=== PATIENT | male | born 1965 | race African-American/Black ===

== ENCOUNTER 2018-03-08 08:55 | Emergency (ER) | payer MEDICAID ==
[~2018-03-08] VITALS: Ht 172.7 cm; Wt 76.0 kg
[2018-03-08] MEDS ORDERED: KETOROLAC 60MG/2ML VIAL IM ONE (13:15)
[2018-03-08 13:45] VITALS: BP 109/79
== END 2018-03-08 14:03 | disposition home or self-care (01) ==
LOC: ER 09:14
DX: J06.9 Acute upper respiratory infection, unspecified (principal); R05 Cough
CPT/HCPCS: 96372; 99283; J1885

== ENCOUNTER 2018-08-18 09:33 | Emergency (ER) | payer MEDICAID ==
[~2018-08-18] VITALS: Ht 172.7 cm; Wt 72.0 kg
[2018-08-18 09:41] VITALS: BP 119/81
[2018-08-18] MEDS ORDERED: IPRATROPIUM BROMIDE (0.02%) 0.5MG/2.5ML NEB HHN STA (10:32)
[2018-08-18] MEDS ORDERED: PREDNISONE 20MG TABLET PO STA (10:32)
[2018-08-18] MEDS ORDERED: ALBUTEROL (0.083%) 2.5MG/3ML NEB HHN STA (10:32)
== END 2018-08-18 11:34 | disposition home or self-care (01) ==
LOC: ER 09:33
DX: J20.9 Acute bronchitis, unspecified (principal); Z88.8 Allergy status to other drugs, medicaments and biological substances
CPT/HCPCS: 71045; 94640; 99283; J7512; J7611

== ENCOUNTER 2018-08-24 09:49 | Emergency (ER) | payer MEDICAID ==
[~2018-08-24] VITALS: Ht 172.7 cm; Wt 73.0 kg
[2018-08-24 11:00] VITALS: BP 132/96
== END 2018-08-24 11:30 | disposition home or self-care (01) ==
LOC: ER 09:49
DX: J40 Bronchitis, not specified as acute or chronic (principal)
CPT/HCPCS: 99281

== ENCOUNTER 2020-08-26 21:14 | Inpatient (IN) | payer MEDICAID ==
[~2020-08-26] VITALS: Ht 167.6 cm; Wt 65.3 kg
[2020-08-26] MEDS ORDERED: ACETAMINOPHEN 325MG TABLET PO STA (23:31)
[2020-08-26] MEDS ORDERED: SODIUM CHLORIDE 0.9% 1,000 ML IV ONE (23:45)
[2020-08-26] MEDS ORDERED: CEFTRIAXONE 1 G PREMIX 50 ML IV ONE (23:45)
[2020-08-26] MEDS ORDERED: AZITHROMYCIN 500 MG in DEXT 5% WATER 250 ML IV ONE (23:45)
[2020-08-27] VITALS (38 sets, daily range): BP systolic 52–146; BP diastolic 30–106
[2020-08-27 00:41] LABS: HEMATOCRIT. 39.3 % (42.0-52.0); HEMOGLOBIN. 12.8 g/dL (14.0-18.0); MEAN CORPUSCULAR VOLUME 88.8 fL (80.0-94.0); MEAN PLATELET VOLUME 9.9 fl (7.4-10.4); PLATELET 204 x1000/uL (130-400); RED BLOOD CELL COUNT 4.42 mill/uL (4.7-6.1)
[2020-08-27 00:44] LABS: CLARITY URINE TURBID (CLEAR); COLOR URINE ORANGE (YELLOW); KETONES URINE TRACE (NEGATIVE); LEUKOCYTE ESTERASE URINE TRACE (NEGATIVE); NITRITE URINE POSITIVE (NEGATIVE); OCCULT BLOOD URINE 3+ (NEGATIVE); PROTEIN URINE 3+ (NEGATIVE); SPECIFIC GRAVITY URINE 1.023 (1.005-1.030)
[2020-08-27 00:45] LABS: CHLORIDE 93 mEq/L (98-107)
[2020-08-27 02:26] LABS: INR 1.2
[2020-08-27 03:59] LABS: NUCLEATED RED BLOOD CELLS 9 /100 WBC; PLATELET ESTIMATE NORMAL
[2020-08-27] MEDS ORDERED: HEPARIN 80 UNITS/KG BOLUS IV SCH (06:00)
[2020-08-27] MEDS ORDERED: HEPARIN BOLUS PRN aPTT <36 IV (06:00)
[2020-08-27] MEDS ORDERED: HEPARIN BOLUS PRN aPTT 37-44 IV (06:00)
[2020-08-27] MEDS ORDERED: HEPARIN 25,000 UNITS PREMIX 250 ML IV SCH (06:00)
[2020-08-27] MEDS ORDERED: IOHEXOL-350 100 ML BOTTLE ONE (06:09)
[2020-08-27] MEDS ORDERED: ACETAMINOPHEN 325MG TABLET PO PRN (10:00)
[2020-08-27] MEDS ORDERED: CLONIDINE 0.1MG TABLET PO PRN (10:00)
[2020-08-27] MEDS ORDERED: ONDANSETRON HCL 4MG/2ML INJ IV PRN (10:00)
[2020-08-27] MEDS: PIPERACILLIN/TAZOBACTAM 3.375 G in DEXTROSE 5% WATER 50 ML IV SCH ×2 (12:02→17:30)
[2020-08-27] MEDS: DEXAMETHASONE 10 MG/ML VIAL IV SCH (12:02)
[2020-08-27 12:32] LABS: BG BASE EXCESS 2.1 mmol/L (-2.0-2.0); BG CARBOXYHEMOGLOBIN 0.8 % (0.5-1.5); BG DEOXYHEMOGLOBIN 4.7 % (0.0-5.0); BG FRACTION INSPIRED OXYGEN 99.8; BG HCO3 ACT 25.5 mmol/L (22.0-26.0); BG METHEMOGLOBIN 0.8 % (0.0-1.5); BG OXYGEN SATURATION 95.2 % (92.0-98.5); BG OXYHEMOGLOBIN 93.7 % (94.0-97.0); BG PCO2 35.9 mmHg (35.0-45.0); BG PO2 75.7 mmHg (75.0-100.0); BG SAMPLE SITE LEFT RADIAL; BG TOTAL HEMOGLOBIN 12.7 g/dL (12.0-18.0); BG VENT MODE MASK - NRB
[2020-08-27] MEDS ORDERED: NALOXONE HCL 0.4MG/ML VIAL IV PRN (12:45)
[2020-08-27] MEDS ORDERED: HYDROCODONE/ACETAMINOPHEN 10/325MG TABLET PO PRN (12:45)
[2020-08-27] MEDS: HEPARIN 25,000 UNITS PREMIX 250 ML IV SCH (13:24)
[2020-08-27 18:55] LABS: *BENZODIAZEPINES SCREEN URINE NEGATIVE (NEGATIVE); CANNABINOID URINE SCREEN NEGATIVE (NEGATIVE); METHADONE URINE SCREEN NEGATIVE (NEGATIVE); PHENCYCLIDINE URINE SCREEN NEGATIVE (NEGATIVE)
[2020-08-27 18:56] LABS: *AMPHETAMINES SCREEN URINE NEGATIVE (NEGATIVE); *BARBITURATES SCREEN URINE NEGATIVE (NEGATIVE); *COCAINE SCREEN URINE NEGATIVE (NEGATIVE); OPIATES URINE SCREEN NEGATIVE (NEGATIVE)
[2020-08-28] VITALS (75 sets, daily range): BP systolic 102–142; BP diastolic 66–101
[2020-08-28] MEDS: PIPERACILLIN/TAZOBACTAM 3.375 G in DEXTROSE 5% WATER 50 ML IV SCH ×4 (00:08→17:16)
[2020-08-28] MEDS: HEPARIN 25,000 UNITS PREMIX 250 ML IV SCH ×2 (00:56→21:03)
[2020-08-28 06:57] LABS: CHLORIDE 99 mEq/L (98-107)
[2020-08-28 06:59] LABS: HEMATOCRIT 34.4 % (42.0-52.0); HEMOGLOBIN 11.4 g/dL (14.0-18.0); MEAN CORPUSCULAR HEMOGLOBIN 29.6 pg (28.0-32.0); MEAN CORPUSCULAR VOLUME 89.7 fL (80.0-94.0); PLATELET 259 x1000/uL (130-400); RED BLOOD CELL COUNT 3.83 mill/uL (4.7-6.1); RED CELL DISTRIBUTION WIDTH 13.2 % (11.6-14.6)
[2020-08-28] MEDS: DEXAMETHASONE 10 MG/ML VIAL IV SCH (10:01)
[2020-08-28 14:11] LABS: C REACTIVE PROTEIN QUANT > 190.0 mg/L (0.0-3.0)
[2020-08-28] MEDS: ALBUTEROL 6.7GM HFA INHALER ORI SCH ×3 (16:21→23:30)
[2020-08-29] VITALS (49 sets, daily range): BP systolic 112–132; BP diastolic 65–98
[2020-08-29] MEDS: PIPERACILLIN/TAZOBACTAM 3.375 G in DEXTROSE 5% WATER 50 ML IV SCH ×5 (01:20→23:03)
[2020-08-29] MEDS: DEXAMETHASONE 10 MG/ML VIAL IV SCH (08:10)
[2020-08-29 10:00] LABS: CHLORIDE 103 mEq/L (98-107)
[2020-08-29] MEDS: ALBUTEROL 6.7GM HFA INHALER ORI SCH ×4 (10:10→23:03)
[2020-08-29] MEDS ORDERED: GUAIFENESIN-DM 200MG-20MG/10ML UDC PO PRN (10:30)
[2020-08-29 11:39] LABS: HEMATOCRIT. 35.6 % (42.0-52.0); MEAN CORPUSCULAR HEMOGLOBIN 30.1 pg (28.0-32.0); MEAN CORPUSCULAR VOLUME 89.7 fL (80.0-94.0); MEAN PLATELET VOLUME 10.4 fl (7.4-10.4); PLATELET 338 x1000/uL (130-400); RED BLOOD CELL COUNT 3.97 mill/uL (4.7-6.1); RED CELL DISTRIBUTION WIDTH 12.7 % (11.6-14.6)
[2020-08-29] MEDS: ENOXAPARIN 80MG/0.8ML SYR SUBCUT SCH ×2 (12:01→22:52)
[2020-08-29 12:25] LABS: PLATELET ESTIMATE NORMAL
[2020-08-30] VITALS: BP 126/84
[2020-08-30 04:00] VITALS: BP 140/93
[2020-08-30] MEDS: ALBUTEROL 6.7GM HFA INHALER ORI SCH ×4 (05:25→23:58)
[2020-08-30] MEDS: PIPERACILLIN/TAZOBACTAM 3.375 G in DEXTROSE 5% WATER 50 ML IV SCH ×4 (05:25→23:53)
[2020-08-30 08:00] VITALS: BP 104/66
[2020-08-30] MEDS: DEXAMETHASONE 10 MG/ML VIAL IV SCH (09:22)
[2020-08-30] MEDS: ENOXAPARIN 80MG/0.8ML SYR SUBCUT SCH ×2 (09:22→20:41)
[2020-08-30 12:00] VITALS: BP 115/78
[2020-08-30 16:00] VITALS: BP 116/80
[2020-08-30 20:00] VITALS: BP 113/79
[2020-08-31] VITALS: BP 156/107
[2020-08-31 04:00] VITALS: BP 138/88
[2020-08-31] MEDS: ALBUTEROL 6.7GM HFA INHALER ORI SCH ×4 (05:20→23:37)
[2020-08-31] MEDS: PIPERACILLIN/TAZOBACTAM 3.375 G in DEXTROSE 5% WATER 50 ML IV SCH ×4 (05:20→23:37)
[2020-08-31 08:00] VITALS: BP 113/82
[2020-08-31] MEDS: ENOXAPARIN 80MG/0.8ML SYR SUBCUT SCH ×2 (10:04→20:34)
[2020-08-31] MEDS: DEXAMETHASONE 10 MG/ML VIAL IV SCH (10:05)
[2020-08-31 12:00] VITALS: BP 119/83
[2020-08-31 13:30] LABS: BG BASE EXCESS 2.3 mmol/L (-2.0-2.0); BG CARBOXYHEMOGLOBIN 0.3 % (0.5-1.5); BG DEOXYHEMOGLOBIN 1.9 % (0.0-5.0); BG FRACTION INSPIRED OXYGEN 99.8; BG HCO3 ACT 26.7 mmol/L (22.0-26.0); BG METHEMOGLOBIN 0.3 % (0.0-1.5); BG OXYGEN SATURATION 98.1 % (92.0-98.5); BG OXYHEMOGLOBIN 97.5 % (94.0-97.0); BG PCO2 40.6 mmHg (35.0-45.0); BG PH 7.436 (7.350-7.450); BG PO2 120.4 mmHg (75.0-100.0); BG SAMPLE SITE RIGHT RADIAL; BG VENT MODE MASK - NRB
[2020-08-31 16:00] VITALS: BP 118/87
[2020-08-31 20:00] VITALS: BP 138/79
[2020-09-01] VITALS: BP 132/88
[2020-09-01 04:00] VITALS: BP 169/101
[2020-09-01] MEDS: ALBUTEROL 6.7GM HFA INHALER ORI SCH ×4 (05:23→23:21)
[2020-09-01] MEDS: PIPERACILLIN/TAZOBACTAM 3.375 G in DEXTROSE 5% WATER 50 ML IV SCH ×2 (05:23→11:43)
[2020-09-01 08:00] VITALS: BP 113/62
[2020-09-01] MEDS: DEXAMETHASONE 10 MG/ML VIAL IV SCH (08:34)
[2020-09-01] MEDS: ENOXAPARIN 80MG/0.8ML SYR SUBCUT SCH ×2 (08:35→20:38)
[2020-09-01 12:00] VITALS: BP 128/89
[2020-09-01 16:00] VITALS: BP 130/79
[2020-09-01 20:00] VITALS: BP 116/87
[2020-09-02] VITALS: BP 124/96
[2020-09-02 04:00] VITALS: BP 116/96
[2020-09-02] MEDS: ALBUTEROL 6.7GM HFA INHALER ORI SCH ×4 (04:54→23:37)
[2020-09-02 08:00] VITALS: BP 126/80
[2020-09-02] MEDS: ENOXAPARIN 80MG/0.8ML SYR SUBCUT SCH ×2 (10:23→20:51)
[2020-09-02] MEDS: DEXAMETHASONE 10 MG/ML VIAL IV SCH (10:23)
[2020-09-02 12:00] VITALS: BP 108/81
[2020-09-02 15:29] LABS: BG BASE EXCESS 3.1 mmol/L (-2.0-2.0); BG CARBOXYHEMOGLOBIN 0.3 % (0.5-1.5); BG FRACTION INSPIRED OXYGEN 21; BG HCO3 ACT 26.5 mmol/L (22.0-26.0); BG METHEMOGLOBIN 0.4 % (0.0-1.5); BG OXYGEN SATURATION 90.9 % (92.0-98.5); BG OXYHEMOGLOBIN 90.3 % (94.0-97.0); BG PCO2 36.5 mmHg (35.0-45.0); BG PH 7.479 (7.350-7.450); BG PO2 58.3 mmHg (75.0-100.0); BG SAMPLE SITE RIGHT BRACHIAL; BG TOTAL HEMOGLOBIN 12.6 g/dL (12.0-18.0); BG VENT MODE ROOM AIR
[2020-09-02 16:00] VITALS: BP 110/80
[2020-09-02 20:00] VITALS: BP 132/92
[2020-09-03 00:12] VITALS: BP 131/78
[2020-09-03 04:00] VITALS: BP 153/103
[2020-09-03] MEDS: ALBUTEROL 6.7GM HFA INHALER ORI SCH ×4 (05:06→22:53)
[2020-09-03 07:45] LABS: BASOPHILS % 0.5 % (0.0-2.0); EOSINOPHILS % 0.8 % (0.0-5.0); HEMOGLOBIN. 11.1 g/dL (14.0-18.0); LYMPHOCYTES % 8.8 % (20.0-50.0); MEAN CORPUSCULAR HEMOGLOBIN 29.5 pg (28.0-32.0); MEAN CORPUSCULAR VOLUME 90.3 fL (80.0-94.0); MEAN PLATELET VOLUME 10.5 fl (7.4-10.4); MONOCYTES % 8.7 % (2.0-8.0); NEUTROPHILS % 81.2 % (40.0-76.0); PLATELET 490 x1000/uL (130-400); RED BLOOD CELL COUNT 3.76 mill/uL (4.7-6.1)
[2020-09-03 08:00] VITALS: BP 113/75
[2020-09-03 08:49] LABS: CHLORIDE 105 mEq/L (98-107)
[2020-09-03] MEDS: ENOXAPARIN 80MG/0.8ML SYR SUBCUT SCH ×2 (09:24→20:19)
[2020-09-03] MEDS: DEXAMETHASONE 10 MG/ML VIAL IV SCH (09:24)
[2020-09-03 11:54] VITALS: BP 124/73
[2020-09-03 16:00] VITALS: BP 116/81
[2020-09-03 20:00] VITALS: BP 125/87
[2020-09-04] VITALS: BP 127/94
[2020-09-04 04:00] VITALS: BP 116/89
[2020-09-04] MEDS: ALBUTEROL 6.7GM HFA INHALER ORI SCH (05:32)
[2020-09-04 05:59] VITALS: BP 125/79
[2020-09-04] MEDS: DEXAMETHASONE 10 MG/ML VIAL IV SCH (09:41)
[2020-09-04] MEDS: ENOXAPARIN 80MG/0.8ML SYR SUBCUT SCH ×2 (09:41→21:19)
[2020-09-04 12:00] VITALS: BP 113/85
[2020-09-04 16:00] VITALS: BP 120/84
[2020-09-04 20:00] VITALS: BP 131/83
[2020-09-04] MEDS: ALBUTEROL (0.083%) 2.5MG/3ML NEB HHN SCH (21:40)
[2020-09-05] VITALS: BP 120/84
[2020-09-05] MEDS: ALBUTEROL (0.083%) 2.5MG/3ML NEB HHN SCH ×2 (01:42→07:23)
[2020-09-05 04:00] VITALS: BP 106/73
[2020-09-05 08:00] VITALS: BP 107/75
[2020-09-05] MEDS: ENOXAPARIN 80MG/0.8ML SYR SUBCUT SCH (09:01)
[2020-09-05] MEDS: DEXAMETHASONE 10 MG/ML VIAL IV SCH (09:02)
[2020-09-05 12:00] VITALS: BP 112/79
[2020-09-05] MEDS ORDERED: ALBU18HF2 IH (13:54)
[2020-09-05] MEDS ORDERED: FLUT1DIS3 INH (13:54)
[2020-09-05] MEDS ORDERED: APIX5TAB MT ×2 (14:09)
[2020-09-05 14:26] VITALS: BP 112/79
[2020-09-05 16:00] VITALS: BP 131/83
== END 2020-09-05 18:15 | disposition home or self-care (01) | DRG 720 ==
LOC: ER 21:14 → MICUSO 08-27 04:41 → EDBEDREQSVC 08-27 04:57 → EDBEDREQ 08-27 04:57 → EDBEDREQTM 08-27 04:57 → ENRESERV 08-27 08:30 → 7WST 08-29 13:10 → 7EST 09-04 05:43
PROVIDERS: ADMIT Internal Medicine; ATTEND Internal Medicine
DX: A41.89 Other specified sepsis (principal); U07.1 COVID-19; I21.4 Non-ST elevation (NSTEMI) myocardial infarction; I26.99 Other pulmonary embolism without acute cor pulmonale; J93.9 Pneumothorax, unspecified; J12.82 Pneumonia due to coronavirus disease 2019; J96.01 Acute respiratory failure with hypoxia; E87.1 Hypo-osmolality and hyponatremia; I82.433 Acute embolism and thrombosis of popliteal vein, bilateral; N39.0 Urinary tract infection, site not specified; E87.8 Other disorders of electrolyte and fluid balance, not elsewhere classified; R74.01 Elevation of levels of liver transaminase levels; D64.9 Anemia, unspecified; D89.839 Cytokine release syndrome, grade unspecified; J98.2 Interstitial emphysema; E44.1 Mild protein-calorie malnutrition; Z99.81 Dependence on supplemental oxygen; Z82.49 Family history of ischemic heart disease and other diseases of the circulatory system; Z79.01 Long term (current) use of anticoagulants; Z68.23 Body mass index [BMI] 23.0-23.9, adult
CPT/HCPCS: 36415; 36600; 71045; 71275; 80048; 80053; 80305; 81003; 82375; 82728; 82805; 83605; 83615; 83735; 84145; 84484; 85025; 85027; 85379; 86140; 87426; 93005; 93306; 93970; 94640; 99291; C1893; J0456; J0696; J1100; J1644; J1650; J2543; J7030; J7060; Q9967; U0003; U0005

== ENCOUNTER 2020-09-05 22:15 | Inpatient (IN) | payer MEDICAID ==
[~2020-09-05] VITALS: Ht 172.7 cm; Wt 63.5 kg
[~2020-09-05 22:15] MED LIST: ALBU18HF2 IH; APIX5TAB MT; FLUT1DIS3 INH
[2020-09-05] MEDS ORDERED: SODIUM CHLORIDE 0.9% 1000ML BAG (SEPSIS BOLUS) IV ONE (22:30)
[2020-09-05] MEDS ORDERED: AZITHROMYCIN 500 MG in DEXT 5% WATER 250 ML IV ONE (22:30)
[2020-09-05] MEDS ORDERED: CEFTRIAXONE 1 G PREMIX 50 ML IV ONE (22:30)
[2020-09-05 23:03] LABS: HEMOGLOBIN. 12.6 g/dL (14.0-18.0); MEAN CORPUSCULAR HEMOGLOBIN 29.5 pg (28.0-32.0); MEAN CORPUSCULAR VOLUME 91.4 fL (80.0-94.0); MEAN PLATELET VOLUME 10.3 fl (7.4-10.4); PLATELET 556 x1000/uL (130-400); RED BLOOD CELL COUNT 4.27 mill/uL (4.7-6.1)
[2020-09-05 23:14] LABS: CHLORIDE 104 mEq/L (98-107)
[2020-09-05 23:25] LABS: D-DIMER 6.04 mg/L FEU (<0.50); PROTHROMBIN TIME 10.9 sec (9.6-11.0)
[2020-09-05 23:32] LABS: PLATELET ESTIMATE INCREASED
[2020-09-06 00:07] LABS: CLARITY URINE CLEAR (CLEAR); COLOR URINE YELLOW (YELLOW); KETONES URINE TRACE (NEGATIVE); LEUKOCYTE ESTERASE URINE NEGATIVE (NEGATIVE); NITRITE URINE NEGATIVE (NEGATIVE); OCCULT BLOOD URINE NEGATIVE (NEGATIVE); PH URINE 5.5 (4.5-8.0); PROTEIN URINE 1+ (NEGATIVE); SPECIFIC GRAVITY URINE 1.023 (1.005-1.030); UROBILINOGEN URINE 0.2 E.U./dL (0.2-1.0)
[2020-09-06] MEDS ORDERED: IOHEXOL-350 100 ML BOTTLE ONE (05:32)
[2020-09-06 07:10] LABS: BG BASE EXCESS 2.1 mmol/L (-2.0-2.0); BG CARBOXYHEMOGLOBIN 0.3 % (0.5-1.5); BG DEOXYHEMOGLOBIN 0.6 % (0.0-5.0); BG FRACTION INSPIRED OXYGEN 100; BG HCO3 ACT 25.8 mmol/L (22.0-26.0); BG METHEMOGLOBIN 0.5 % (0.0-1.5); BG OXYGEN SATURATION 99.4 % (92.0-98.5); BG OXYHEMOGLOBIN 98.6 % (94.0-97.0); BG PCO2 36.8 mmHg (35.0-45.0); BG PH 7.463 (7.350-7.450); BG PO2 208.1 mmHg (75.0-100.0); BG SAMPLE SITE LEFT RADIAL; BG TOTAL HEMOGLOBIN 10.8 g/dL (12.0-18.0); BG VENT MODE MASK - NRB
[2020-09-06] MEDS ORDERED: IPRATROPIUM/ALBUTEROL 0.5-3(2.5)MG/3ML NEB HHN PRN (08:15)
[2020-09-06] MEDS ORDERED: ACETAMINOPHEN 325MG TABLET PO PRN (08:15)
[2020-09-06] MEDS ORDERED: ONDANSETRON HCL 4MG/2ML INJ IV PRN (08:15)
[2020-09-06] MEDS: ENOXAPARIN 80MG/0.8ML SYR SUBCUT SCH ×2 (09:23→22:32)
[2020-09-06] MEDS ORDERED: IPRATROPIUM/ALBUTEROL 0.5-3(2.5)MG/3ML NEB HHN SCH (18:00)
[2020-09-06] MEDS: CEFTRIAXONE 1,000 MG in DEXTROSE 5% WATER 50 ML IV SCH (22:32)
[2020-09-06] MEDS: AZITHROMYCIN 250 MG TABLET PO SCH (22:32)
[2020-09-07] VITALS (7 sets, daily range): BP systolic 108–128; BP diastolic 77–85
[2020-09-07] MEDS: ENOXAPARIN 80MG/0.8ML SYR SUBCUT SCH (08:09)
[2020-09-07 08:11] LABS: BASOPHILS % 0.8 % (0.0-2.0); EOSINOPHILS % 2.9 % (0.0-5.0); HEMATOCRIT. 30.6 % (42.0-52.0); HEMOGLOBIN. 9.9 g/dL (14.0-18.0); LYMPHOCYTES % 14.1 % (20.0-50.0); MEAN CORPUSCULAR HEMOGLOBIN 29.5 pg (28.0-32.0); MEAN CORPUSCULAR VOLUME 91.1 fL (80.0-94.0); MEAN PLATELET VOLUME 10.6 fl (7.4-10.4); MONOCYTES % 12.3 % (2.0-8.0); NEUTROPHILS % 69.9 % (40.0-76.0); PLATELET 355 x1000/uL (130-400); RED BLOOD CELL COUNT 3.36 mill/uL (4.7-6.1); RED CELL DISTRIBUTION WIDTH 13.5 % (11.6-14.6)
[2020-09-07 08:12] LABS: CHLORIDE 108 mEq/L (98-107)
[2020-09-07] MEDS: CEFTRIAXONE 1,000 MG in DEXTROSE 5% WATER 50 ML IV SCH (20:56)
[2020-09-07] MEDS: ENOXAPARIN 60MG/0.6ML SYR SUBCUT SCH (21:29)
[2020-09-07] MEDS: AZITHROMYCIN 250 MG TABLET PO SCH (21:29)
[2020-09-08] VITALS: BP 131/88
[2020-09-08 04:00] VITALS: BP 119/77
[2020-09-08 08:00] VITALS: BP 114/84
[2020-09-08] MEDS: ENOXAPARIN 60MG/0.6ML SYR SUBCUT SCH ×2 (10:04→21:49)
[2020-09-08] MEDS ORDERED: GUAIFENESIN-DM 200MG-20MG/10ML UDC PO PRN (11:15)
[2020-09-08 12:00] VITALS: BP 108/75
[2020-09-08 16:00] VITALS: BP 112/79
[2020-09-08 20:00] VITALS: BP 125/83
[2020-09-08] MEDS: AZITHROMYCIN 250 MG TABLET PO SCH (21:47)
[2020-09-08] MEDS: CEFTRIAXONE 1,000 MG in DEXTROSE 5% WATER 50 ML IV SCH (21:58)
[2020-09-09] VITALS: BP 115/78
[2020-09-09 04:00] VITALS: BP 105/68
[2020-09-09 08:00] VITALS: BP 99/73
[2020-09-09] MEDS: ENOXAPARIN 60MG/0.6ML SYR SUBCUT SCH ×2 (08:12→21:00)
[2020-09-09 12:00] VITALS: BP 105/75
[2020-09-09 16:00] VITALS: BP 119/88
[2020-09-09 20:00] VITALS: BP 108/77
[2020-09-09] MEDS: AZITHROMYCIN 250 MG TABLET PO SCH (21:19)
[2020-09-09] MEDS: CEFTRIAXONE 1,000 MG in DEXTROSE 5% WATER 50 ML IV SCH (22:03)
[2020-09-10] VITALS: BP 116/85
[2020-09-10 04:00] VITALS: BP 104/74
[2020-09-10 08:00] VITALS: BP 108/67
[2020-09-10] MEDS: ENOXAPARIN 60MG/0.6ML SYR SUBCUT SCH (08:16)
[2020-09-10] MEDS ORDERED: APIX5TAB MT (10:53)
[2020-09-10] MEDS ORDERED: FLUT1DIS3 INH (10:53)
[2020-09-10] MEDS ORDERED: ALBU18HF2 IH (10:53)
[2020-09-10 12:00] VITALS: BP 100/73
[2020-09-10 15:11] VITALS: BP 100/73
[2020-09-10 16:00] VITALS: BP 101/71
== END 2020-09-10 17:15 | disposition home or self-care (01) | DRG 720 ==
LOC: ER 22:15 → EDBEDREQSVC 22:36 → EDBEDREQTM 22:36 → EDBEDREQ 22:36 → MICUSO 23:32 → EDBEDREQSVC 23:38 → EDBEDREQTM 23:38 → EDBEDREQ 23:38 → 7WST 09-06 23:19
PROVIDERS: ADMIT Internal Medicine; ATTEND Internal Medicine
DX: A41.89 Other specified sepsis (principal); U07.1 COVID-19; I26.99 Other pulmonary embolism without acute cor pulmonale; J12.82 Pneumonia due to coronavirus disease 2019; E87.1 Hypo-osmolality and hyponatremia; I25.2 Old myocardial infarction; I82.433 Acute embolism and thrombosis of popliteal vein, bilateral; J98.2 Interstitial emphysema; E44.0 Moderate protein-calorie malnutrition; R74.01 Elevation of levels of liver transaminase levels; J96.21 Acute and chronic respiratory failure with hypoxia; D64.9 Anemia, unspecified; Z82.49 Family history of ischemic heart disease and other diseases of the circulatory system; Z86.711 Personal history of pulmonary embolism; Z86.718 Personal history of other venous thrombosis and embolism; Z79.2 Long term (current) use of antibiotics; Z79.899 Other long term (current) drug therapy; Z68.21 Body mass index [BMI] 21.0-21.9, adult
CPT/HCPCS: 36415; 36600; 71045; 71275; 80048; 80053; 81003; 82375; 82805; 83605; 83880; 84145; 84484; 85025; 85379; 87426; 93005; 99291; J0456; J0696; J1650; J7030; J7060; Q9967; U0003; U0005

== ENCOUNTER 2020-09-15 20:10 | Emergency (ER) | payer MEDICAID ==
[~2020-09-15] VITALS: Ht 172.7 cm; Wt 70.0 kg
[2020-09-16 04:36] VITALS: BP 125/82
== END 2020-09-16 05:00 | disposition home or self-care (01) ==
LOC: ER 20:10
DX: M79.671 Pain in right foot (principal)
CPT/HCPCS: 73650; 93971; 99284

== ENCOUNTER 2021-01-31 14:39 | Inpatient (IN) | payer MEDICAID, OTHER ==
[~2021-01-31] VITALS: Ht 172.7 cm; Wt 71.7 kg
[2021-01-31] MEDS ORDERED: ASPIRIN 81MG TABLET PO ONE (16:00)
[2021-01-31] MEDS ORDERED: NITROGLYCERIN 0.4MG TABLET SL SL PRN (16:00)
[2021-01-31 16:41] LABS: BASOPHILS % 0.4 % (0.0-2.0); EOSINOPHILS % 0.2 % (0.0-5.0); HEMOGLOBIN. 13.4 g/dL (14.0-18.0); MEAN CORPUSCULAR HEMOGLOBIN 28.2 pg (28.0-32.0); MEAN CORPUSCULAR VOLUME 86.3 fL (80.0-94.0); MEAN PLATELET VOLUME 10.7 fl (7.4-10.4); MONOCYTES % 8.1 % (2.0-8.0); NEUTROPHILS % 80.3 % (40.0-76.0); PLATELET 173 x1000/uL (130-400); RED BLOOD CELL COUNT 4.75 mill/uL (4.7-6.1); RED CELL DISTRIBUTION WIDTH 13.7 % (11.6-14.6)
[2021-01-31 16:47] LABS: CHLORIDE 109 mEq/L (98-107)
[2021-02-01 09:30] VITALS: BP 138/93
[2021-02-01] MEDS ORDERED: ACETAMINOPHEN 325MG TABLET PO PRN (11:00)
[2021-02-01] MEDS ORDERED: ONDANSETRON HCL 4MG/2ML INJ IV PRN (11:00)
[2021-02-01] MEDS ORDERED: APIXABAN 5 MG TABLET PO SCH (11:30)
[2021-02-01 12:00] VITALS: BP 133/64
[2021-02-01] MEDS: ENOXAPARIN 40MG/0.4ML SYR SUBCUT SCH (15:15)
[2021-02-01 16:00] VITALS: BP 112/66
[2021-02-01 20:00] VITALS: BP 114/62
[2021-02-02] VITALS: BP 113/77
[2021-02-02 04:00] VITALS: BP 107/66
[2021-02-02 08:00] VITALS: BP 133/87
[2021-02-02] MEDS: ENOXAPARIN 40MG/0.4ML SYR SUBCUT SCH (10:00)
[2021-02-02 12:00] VITALS: BP 116/70
[2021-02-02 13:24] VITALS: BP 116/70
== END 2021-02-02 15:30 | disposition home or self-care (01) | DRG 137 ==
LOC: ER 14:39 → MICUSO 19:54 → EDBEDREQ 19:56 → EDBEDREQTM 19:56 → 7WST 02-01 09:54
PROVIDERS: ADMIT Internal Medicine; ATTEND Internal Medicine
DX: U07.1 COVID-19 (principal); E87.8 Other disorders of electrolyte and fluid balance, not elsewhere classified; R07.89 Other chest pain; Z79.01 Long term (current) use of anticoagulants; Z82.49 Family history of ischemic heart disease and other diseases of the circulatory system; Z79.899 Other long term (current) drug therapy
CPT/HCPCS: 36415; 71045; 80053; 83880; 84484; 85025; 85379; 87426; 93005; 93970; 99285; J1650

== ENCOUNTER 2021-02-04 17:30 | Emergency (ER) | payer OTHER ==
[~2021-02-04] VITALS: Ht 172.7 cm; Wt 73.0 kg
[~2021-02-04 17:30] MED LIST changes: -APIX5TAB MT
[2021-02-05 01:19] LABS: BASOPHILS % 1.4 % (0.0-2.0); EOSINOPHILS % 3.5 % (0.0-5.0); HEMATOCRIT. 42.8 % (42.0-52.0); HEMOGLOBIN. 14.1 g/dL (14.0-18.0); LYMPHOCYTES % 25.7 % (20.0-50.0); MEAN CORPUSCULAR HEMOGLOBIN 28.4 pg (28.0-32.0); MEAN CORPUSCULAR VOLUME 86.5 fL (80.0-94.0); MEAN PLATELET VOLUME 10.4 fl (7.4-10.4); MONOCYTES % 13.9 % (2.0-8.0); NEUTROPHILS % 55.5 % (40.0-76.0); PLATELET 235 x1000/uL (130-400); RED BLOOD CELL COUNT 4.95 mill/uL (4.7-6.1); RED CELL DISTRIBUTION WIDTH 13.7 % (11.6-14.6)
[2021-02-05 01:32] LABS: CHLORIDE 107 mEq/L (98-107)
[2021-02-05 02:59] LABS: CLARITY URINE CLEAR (CLEAR); COLOR URINE YELLOW (YELLOW); KETONES URINE NEGATIVE (NEGATIVE); LEUKOCYTE ESTERASE URINE NEGATIVE (NEGATIVE); NITRITE URINE NEGATIVE (NEGATIVE); OCCULT BLOOD URINE NEGATIVE (NEGATIVE); PROTEIN URINE NEGATIVE (NEGATIVE); SPECIFIC GRAVITY URINE 1.025 (1.005-1.030); UROBILINOGEN URINE 0.2 E.U./dL (0.2-1.0)
[2021-02-05 06:45] VITALS: BP 112/79
== END 2021-02-05 07:14 | disposition home or self-care (01) ==
LOC: ER 17:30
DX: I10 Essential (primary) hypertension (principal)
CPT/HCPCS: 36415; 71045; 80053; 81003; 83880; 84484; 85025; 93005; 99284; 99285

== ENCOUNTER 2022-07-28 17:59 | Emergency (ER) | payer MEDICAID, OTHER ==
[2022-07-28 18:09] VITALS: PULSE 96; RESP 18
[2022-07-28] MEDS ORDERED: TC025C15 TP (21:07)
== END 2022-07-28 21:28 | disposition home or self-care (01) ==
LOC: ER 17:59
DX: L40.9 Psoriasis, unspecified (principal)
CPT/HCPCS: 99283

== ENCOUNTER 2023-01-25 10:37 | Emergency (ER) | payer MEDICAID, OTHER ==
[~2023-01-25] VITALS: Ht 172.7 cm; Wt 75.0 kg
[~2023-01-25 10:37] MED LIST changes: +TC025C15 TP
[2023-01-25 10:45] VITALS: O2SAT 96
[2023-01-25] MEDS ORDERED: BENZ200C52 MT (12:14)
[2023-01-25 12:49] VITALS: BP 146/92; PULSE 93; RESP 18; TEMP 99.1
== END 2023-01-25 12:50 | disposition home or self-care (01) ==
LOC: ER 10:37
DX: J06.9 Acute upper respiratory infection, unspecified (principal); R05.9 Cough, unspecified; I82.409 Acute embolism and thrombosis of unspecified deep veins of unspecified lower extremity
CPT/HCPCS: 71045; 99283

== ENCOUNTER 2024-05-11 07:47 | Emergency (ER) | payer MEDICAID ==
[~2024-05-11] VITALS: Ht 172.7 cm; Wt 74.8 kg
[~2024-05-11 07:47] MED LIST changes: +BENZ200C52 MT
[2024-05-11 07:51] VITALS: BP 147/97; PULSE 88; RESP 16; TEMP 37.1; O2SAT 98
[2024-05-11 09:16] LABS: *AMPHETAMINES SCREEN URINE NEGATIVE (NEGATIVE)
[2024-05-11 09:17] LABS: *BARBITURATES SCREEN URINE NEGATIVE (NEGATIVE); *BENZODIAZEPINES SCREEN URINE NEGATIVE (NEGATIVE); *COCAINE SCREEN URINE NEGATIVE (NEGATIVE); CANNABINOID URINE SCREEN NEGATIVE (NEGATIVE); ECSTASY MDMA SCREEN URINE NEGATIVE (NEGATIVE); METHADONE URINE SCREEN NEGATIVE (NEGATIVE); OPIATES URINE SCREEN NEGATIVE (NEGATIVE); PHENCYCLIDINE URINE SCREEN NEGATIVE (NEGATIVE)
[2024-05-11 11:09] LABS: INFLUENZA TYPE A Presumptive Negative (Pres. Neg.); INFLUENZA TYPE B Presumptive Negative (Pres. Neg.)
[2024-05-11] MEDS ORDERED: ALBU18HF2 IH (11:49)
[2024-05-11] MEDS ORDERED: TUSSL MT (11:49)
[2024-05-11 12:21] LABS: RESPIRATORY SYNCYTIAL VIRUS Not Detected (Not Detectd)
== END 2024-05-11 12:07 | disposition home or self-care (01) ==
LOC: ER 07:47
DX: R05.9 Cough, unspecified (principal); Z20.822 Contact with and (suspected) exposure to COVID-19; Z79.899 Other long term (current) drug therapy; Z98.890 Other specified postprocedural states
CPT/HCPCS: 71045; 80305; 87420; 87426; 87804; 99284